=== PATIENT | female | born 1935 | race Caucasian/White ===

== ENCOUNTER 2016-09-30 15:50 | Inpatient (IN) | payer MEDICARE ==
--- NOTE | 2016-09-30 17:01 | CT ---
EXAM DESCRIPTION: Head CLINICAL HISTORY: DIZZINESS AND GIDDINESS COMPARISON: August 31, 2014 TECHNIQUE: Non contrast cranial CT This exam was performed according to our departmental dose-optimization program, which includes automated exposure control, adjustment of the mA and/or kV according to patient size and/or use of iterative reconstruction technique. FINDINGS: Unenhanced CT evaluation of the head without MPR reformatted images demonstrates stable moderate ventriculomegaly and prominence of the sylvian fissures and cortical sulci consistent with significant atrophy. No subarachnoid or parenchymal hemorrhage is seen. Small calcifications in the basal ganglia represent benign age-related changes. There is no midline shift or mass effect. The third and fourth ventricles are midline. No subarachnoid or parenchymal or subdural hemorrhage or hematoma is noted. Bone window images demonstrate the bony calvarium is intact. The petrous ridges and upper paranasal sinuses are clear. The right globe is unremarkable but surface calcification and irregularity of the left globe suggest previous trauma and/or surgery. This however is unchanged from 2015 examination. IMPRESSION: 1. Ventriculomegaly with age-related atrophic changes with no acute intracranial process. 2. Abnormal left globe consistent with old surgery and/or trauma with calcification of the wall of the globe, unchanged from 2015. Electronically signed by: Dex Olsen MD 09/30/2016 5:00 PM CDT
--- NOTE | 2016-09-30 17:35 | ED.PDOC ---
History of Present Illness - General Chief Complaint: General Stated Complaint: abnormal lab results Time Seen by Provider: 09/30/16 17:28 Source: patient - History of Present Illness Initial Comments: Cyndi Mallory 81 y/o female stated taht she was sent from her mds office due to elevated CK.Denies body aches ,ststed just felt cold this am had some chills but doing better. Timing/Duration: 4-6 hours Severity: moderate Improving Factors: nothing Worsening Factors: nothing Associated Symptoms: denies symptoms Allergies/Adverse Reactions: Allergies NO KNOWN ALLERGY Allergy (Verified 09/30/16 17:14) Home Medications: Ambulatory Orders Allopurinol [Zyloprim] 150 mg PO DAILY 08/31/14 Atorvastatin Calcium [Lipitor] 80 mg PO DAILY 08/31/14 Clopidogrel Bisulfate [Plavix] 75 mg PO QD 08/31/14 Levetiracetam [Keppra] 500 mg PO BID 08/31/14 Tramadol HCl [Ultram] 50 mg PO PRN PRN 08/31/14 Donepezil Hydrochloride [Donepezil HCl] 10 mg PO DAILY 09/30/16 Estrogens, Conjugated [Premarin] 0.625 mg PO DAILY 09/30/16 Lisinopril 40 mg PO DAILY 09/30/16 Metoprolol Tartrate 25 mg PO DAILY 09/30/16 Review of Systems - Review of Systems Constitutional: States: no symptoms reported EENTM: States: no symptoms reported Respiratory: States: no symptoms reported Cardiology: States: no symptoms reported Gastrointestinal/Abdominal: States: no symptoms reported Genitourinary: States: no symptoms reported Musculoskeletal: States: no symptoms reported Skin: States: no symptoms reported Neurological: States: no symptoms reported Past Medical History (General) - Patient Medical History Hx Seizures: Yes Hx Stroke: Yes Hx Dementia: Yes Hx Asthma: No Hx of COPD: Yes Hx Cardiac Disorders: Yes Hx Congestive Heart Failure: No Hx Hypertension: Yes Hx Thyroid Disease: Yes Hx Diabetes: No Hx Cancer: No Hx Hepatitis C: No Surgical History: appendectomy, tonsillectomy, other - hysterectomy - Vaccination History Hx Tetanus, Diphtheria Vaccination: Yes Hx Influenza Vaccination: Yes Hx Pneumococcal Vaccination: Yes - Social History Hx Tobacco Use: Yes Hx Chewing Tobacco Use: No Hx Alcohol Use: No Hx Substance Use: No Hx Substance Use Treatment: No Hx Depression: No Hx Physical Abuse: No Hx Emotional Abuse: No Hx Suspected Abuse: No - Activities of Daily Living Patient Lives Alone: No - family Hospice Agency (if applicable):: None - Female History Patient is a Female of Child Bearing Age (10 -59 yrs old): No Patient : No Family Medical History - Family History Mother Family History: No Known Living Status: Unknown Hx Cardiac Disease: Yes - parents Physical Exam - Physical Exam General Appearance: Alert, Comfortable, No apparent distress Eye Exam: bilateral normal Ears, Nose, Throat: hearing grossly normal, normal ENT inspection, normal pharynx Neck: non-tender, full range of motion, supple Respiratory: chest non-tender, lungs clear, normal breath sounds Cardiovascular/Chest: normal peripheral pulses, regular rate, rhythm, no murmur Peripheral Pulses: radial,right: 1+, radial,left: 1+ Gastrointestinal/Abdominal: normal bowel sounds, non tender, soft Back Exam: normal inspection, no CVA tenderness Extremity: non-tender, no pedal edema, no calf tenderness Neurologic: no motor/sensory deficits, alert, normal mood/affect, oriented x 3 Departure - Departure Clinical Impression: Non-traumatic rhabdomyolysis Renal failure (ARF), acute on chronic Qualifiers: Acute renal failure type: unspecified Chronic kidney disease stage: unspecified stage Qualified Code(s): N17.9 - Acute kidney failure, unspecified Time of Disposition: 19:15 - D/W Dr. Fabian-Hospitalist Disposition: Admit Patient Condition: Fair Departure Forms: Patient Portal Self Enrollment Referrals: Akira Beasley MD [Primary Care Provider] - 1-2 Weeks Home Medications: Ambulatory Orders Allopurinol [Zyloprim] 150 mg PO DAILY 08/31/14 Atorvastatin Calcium [Lipitor] 80 mg PO DAILY 08/31/14 Clopidogrel Bisulfate [Plavix] 75 mg PO QD 08/31/14 Levetiracetam [Keppra] 500 mg PO BID 08/31/14 Tramadol HCl [Ultram] 50 mg PO PRN PRN 08/31/14 Donepezil Hydrochloride [Donepezil HCl] 10 mg PO DAILY 09/30/16 Estrogens, Conjugated [Premarin] 0.625 mg PO DAILY 09/30/16 Lisinopril 40 mg PO DAILY 09/30/16 Metoprolol Tartrate 25 mg PO DAILY 09/30/16 Decision To Admit - Decistion To Admit Decision to Admit Reason: Admit from ER Decision to Admit Date: 09/30/16 Decision to Admit Time: 19:16
[2016-09-30] MEDS ORDERED: HYDROcodone 5MG/APAP 325MG 1 EA TAB PO PRN (20:13)
[2016-09-30] MEDS ORDERED: MAGNESIUM HYDROXIDE 30 ML UD PO PRN (20:13)
[2016-09-30] MEDS ORDERED: SODIUM CHLORIDE 0.9% (FLUSH) 10 ML SYG IV PRN (20:13)
[2016-09-30] MEDS ORDERED: ONDANSETRON INJ 4 MG/2 ML VIAL IV PRN (20:13)
--- NOTE | 2016-09-30 20:16 | HP ---
HISTORY OF PRESENT ILLNESS: This 81 year-old white female is admitted to the hospital from the Emergency Room after being sent from Dr. Beasley's office for specific evaluation and treatment because of an elevated CPK noted in his office. She has had significant shaking chills since yesterday afternoon but no fever. She has been nauseated but no emesis. She has had decreased urine output recently. She has not been lying on any hard surfaces. She has had no chest pain but she has been feeling especially tired recently. Mild shortness of breath upon exertion. The patient is admitted to the hospital because in the Emergency Room she was found to have CPK elevation going higher as well as evidence of a hyperchloremic metabolic acidosis possibly associated with an acute kidney injury with renal failure possibly related to the Rhabdomyolysis. Special attention to rule out a urinary tract infection is in progress. Special fluid administration to assist with the metabolic acidosis without aggravating the hyperchloremic state and to help eliminate some of the significant muscle pigment circulating. PAST MEDICAL HISTORY: 1. Cerebrovascular accident on 2 occasions mild in nature. PAST SURGICAL HISTORY: 1. Hysterectomy with oophorectomy in her 20s when she has taken fairly high doses of Premarin since. 2. Appendix removal. FAMILY HISTORY: Positive for coronary artery disease, diabetes mellitus, cancer and some cerebrovascular accidents. 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 Tobacco use was stopped over 22 years ago. REVIEW OF SYSTEMS: Weight is stable. She has had no fever, but she has had some shaking chills since yesterday afternoon. HEENT: Slight decrease in her hearing noted recently. LUNGS: Generally clear with no significant cough or hemoptysis. CARDIOVASCULAR: No chest pain or palpitations noted. GASTROINTESTINAL: Appetite is fair with nausea but no emesis. No blood in the stools. GENITOURINARY: No dysuria but decreased urine output with decreased fluid intake noted today. NEUROLOGIC: The patient is feeling a little weaker recently. No significant headaches or focal weakness. PHYSICAL EXAMINATION: VITAL SIGNS: Afebrile, pulse 60, blood pressure 188/73, respirations 16, pulse oximetry 98% on room air. Weight is 68 kilos. GENERAL: The patient is awake and alert. She is accompanied by other family members who assist with the ongoing history. The patient is able to communicate quite well and has a fairly good grasp of her past history. HEENT: Unremarkable. NECK: Supple. CHEST: Lungs are generally clear to auscultation. CARDIOVASCULAR: Heart tones somewhat distant though regular. Blood pressure is slightly elevated. ABDOMEN: Has fairly good bowel tones. No organomegaly, masses or tenderness at this time. EXTREMITIES: No significant edema state. Moving all extremities. No significant muscle soreness or tightness. NEUROLOGIC: No focal neurological deficits. The patient is awake, alert and oriented, and communicative. LABORATORY: White count is 7,900, hemoglobin 11.9 with normocytic normochromic presentation. Platelets normal. INR of 0.87. Chemistries are significant in that the CO2 is low at 14 suggesting an acidosis while chloride is elevated at 114, potassium normal at 4.1, BUN markedly elevated at 58 almost double what it normally is and creatinine 4.15 where it normally runs approximately half of that in the low 2s. Glucose is 108, osmolality is normal at 294. Lactic acid is pending. Calcium 8.2, magnesium 1.6. AST 43, creatinine kinase is elevated at 797 with 11.8 being the CK-MB with normal troponin of 0.02. Albumin normal at 3.4, TSH normal 3.53. Urinalysis is pending. Blood cultures are pending. Abdominal/pelvic CT does reveal evidence of a nonobstructing stone in the left lower pole of the kidney and a small hiatal hernia. Head CT was performed and shows no acute findings with slight enlargement of the ventricles evident with age-related atrophic changes and an old possible injury or surgery to the left eye. ASSESSMENT: 1. Acute renal injury with early renal failure possibly aggravated by circulating muscle pigments requiring specialized buffered crystalloid to support and close followup necessary to prevent worsening. 2. Rhabdomyolysis with elevated CPK possibly related to the ongoing use of fairly fairly large doses of statins for elevated cholesterol levels in the past. Statins now stopped. 3. History of an acute metabolic acidosis with hyperchloremic state possibly related to the underlying renal failure and acute renal injury with close followup necessary. 4. Shaking chills possibly related to a urinary tract infection still awaiting urinalysis. 5. Longstanding Premarin use fairly high dose which may be increasing her risk for thromboembolic disease process. PLAN: The patient is admitted to the hospital for buffered crystalloid administration in an effort to try to minimize the fairly significant renal injury noted. Close observation of CPK and metabolic acidosis is necessary. The patient may require antibiotic use and cultures are pending. Continue with DVT prophylaxis but adjust dosings of medications because of the renal injury. Special attention to adequate fluids to help flush muscle pigments out of her bloodstream. Close followup also with Nephrology Service depending upon how rapidly she responds to the conservative treatment initiated. #[id number] MTDD
[2016-09-30] MEDS ORDERED: IV SET AND CAP CHANGE INJ INJ SCH (20:30)
[2016-09-30] MEDS ORDERED: ENOXAPARIN SODIUM 40 MG/0.4 ML SYG SUBCU SCH (20:30)
--- NOTE | 2016-09-30 20:34 | CT ---
PROCEDURE: Abdoment/Pelvis w/o Contrast HISTORY: renal failure Indication: Same as above Comparison: 09/26/2015 Technique: CT of the abdomen and pelvis was done without intravenous contrast. Images were obtained from the lung base to the level of the pubic symphysis in axial plane, followed by orthogonal sagittal and coronal reconstruction. Oral contrast was not given for the study. This exam was performed according to our departmental dose-optimization program, which includes automated exposure control, adjustment of the mA and/or KV according to the patient's size and/or use of iterative reconstruction technique. FINDINGS: Images through the lung bases do not show any focal infiltrates or pleural effusions. There is presence of a small hiatal hernia. There is a 3 mm nonobstructive calculus in the lower pole of the left kidney. There is no hydroureteronephrosis on either side The liver, gallbladder, pancreas, spleen and the bilateral adrenal glands appear unremarkable, given the limitation of lack of intravenous contrast. The urinary bladder is unremarkable, without any evidence of wall thickening, calculi or filling defects. The small bowel appears unremarkable, without any evidence of small bowel obstruction or bowel wall thickening. There is no CT evidence of acute appendicitis, pericecal inflammatory change or ileocecal mesenteric adenitis. The ileocecal junction appears unremarkable. There is no CT evidence of acute colonic diverticulitis or colitis or large bowel obstruction. There is no pathological lymphadenopathy in the retroperitoneum or in the pelvic region. There is no evidence of free fluid or free air in the abdomen or the pelvic region. There is no clinically significant abdominal aortic aneurysm. Atherosclerotic vascular calcifications involving the takeoff of the major vessels from the abdominal aorta as well as the abdominal aorta are noted. There is no clinically significant inguinal or ventral hernia. The visualized lumbar spine shows multilevel degenerative change. The paravertebral soft tissues are unremarkable. The remainder of the pelvic structures are unremarkable. IMPRESSION: There is presence of a small hiatal hernia. There is a 3 mm nonobstructive calculus in the lower pole of the left kidney. There is no hydroureteronephrosis on either side Electronically signed by: Kalyan Cote MD 09/30/2016 8:32 PM CDT Workstation: [id number]
[2016-09-30] MEDS ORDERED: DEXTROSE 5% 1000ML 1,000 ML IVS ONE (20:58)
[2016-09-30] MEDS ORDERED: levETIRAcetam 250 MG TAB ONE (20:58)
[2016-09-30] MEDS ORDERED: SODIUM BICARBONATE SYRINGE 50 MEQ/50 ML SYG IV ONE (20:58)
[2016-09-30] MEDS ORDERED: NON-FORMULARY MEDICATION 1 EA MIS (Levetiracetam [Keppra] 500 MG) PO SCH (21:00)
[2016-09-30] MEDS: SODIUM BICARBONATE SYRINGE 75 MEQ in DEXTROSE 5% 1000ML 1,000 ML IV PRN (21:00)
[2016-09-30] MEDS ORDERED: METOPROLOL TARTRATE 25 MG TAB PO SCH (21:00)
[2016-09-30] MEDS: LEVALBUTEROL NEBS 0.63 MG/3 ML VIAL INH SCH (23:54)
[2016-10-01] MEDS: OMEPRAZOLE CAP 20 MG CAP PO SCH (06:24)
--- NOTE | 2016-10-01 07:06 | RAD ---
EXAM: Single view chest. INDICATION: Chills. COMPARISON: Chest x-ray: 03/09/2015. FINDINGS: Cardiac silhouette: Enlarged Marifer: Unremarkable. Lobar consolidation: None. Pleural effusion: None. Pneumothorax: None. Other: None. Bones: Unremarkable. Other: None. IMPRESSION: 1. No acute cardiopulmonary process. Electronically signed by: Nomi Patel MD 10/01/2016 7:05 AM CDT Workstation: [id number]
[2016-10-01] MEDS ORDERED: CEPHALEXIN MONOHYDRATE 500 MG CAP ONE (07:19)
[2016-10-01] MEDS ORDERED: ENOXAPARIN SODIUM 60 MG/0.6 ML SYG SUBCU SCH ×2 (08:00→20:30)
[2016-10-01] MEDS: LEVALBUTEROL NEBS 0.63 MG/3 ML VIAL INH SCH ×2 (08:45→16:30)
[2016-10-01] MEDS ORDERED: SODIUM BICARBONATE SYRINGE 50 MEQ/50 ML SYG IV ONE ×2 (08:55→19:52)
[2016-10-01] MEDS ORDERED: DEXTROSE 5% 1000ML 1,000 ML IVS ONE ×2 (08:55→19:52)
[2016-10-01] MEDS ORDERED: MAGNESIUM SULFATE PREMIX 2GM 50 ML IVPB ONE (09:26)
[2016-10-01] MEDS: LISINOPRIL 10 MG TAB PO SCH (09:32)
[2016-10-01] MEDS: levETIRAcetam 250 MG TAB PO SCH ×2 (09:32→20:32)
[2016-10-01] MEDS: METOPROLOL TARTRATE 25 MG TAB PO SCH ×2 (09:33→17:29)
[2016-10-01] MEDS: SODIUM BICARBONATE SYRINGE 75 MEQ in DEXTROSE 5% 1000ML 1,000 ML IV PRN ×2 (09:33→20:26)
[2016-10-01] MEDS: MAGNESIUM SULFATE PREMIX 2GM 2 GM in PREMIX BAG 1 BAG IVPB ONE ×2 (09:33→09:37)
--- NOTE | 2016-10-01 17:24 | PN ---
DATE: 10/01/16 SUPERVISING PHYSICIAN: Dex Abel M.D. SUBJECTIVE: The patient notes that she is feeling a little better. She has had no nausea today. She denies any chest pains. She is tolerating oral intake well. She remains afebrile. OBJECTIVE: VITAL SIGNS: T max 98.5, pulse 59, blood pressure 179/74, respirations 12, satting 97% on room air. I's and O's show a negative balance of 380 with 370 in, 750 out. Weight is 70.2 kg. CHEST: Lungs are clear to auscultation bilaterally. HEART: Regular rate and rhythm. ABDOMEN: Soft, non- tender. Positive bowel sounds. EXTREMITIES: No clubbing, cyanosis or edema. NEUROLOGIC: She is alert and oriented times three. LABORATORY: Potassium today is 3.4 which is down from admission of 4.1, chloride remains elevated at 114, carbon dioxide is still low at 16, BUN has improved somewhat to 55, creatinine as well has gone down to 3.89 compared to 4.15. Serum osmolality continues to show elevation. Calcium 7.9 corrected for a low albumin, calcium is 9.1. CPK is now down to 637 compared to previous 12 hours, it was at 797. Troponin remains within normal limits at 0.03. Liver panel this morning showed triglycerides at 193 with LDL and HDL within normal limits as well as cholesterol. MICROBIOLOGY: Blood cultures remain negative at 24 hours. RADIOLOGY: Chest x-ray shows no acute cardiopulmonary process per radiology interpretation. ASSESSMENT: 1. Acute renal injury with early renal failure aggravated by Rhabdomyolysis requiring specialized buffered crystalloid with bicarbonate to support and improve renal function continuing to show improvement. 2. Rhabdomyolysis with elevated CPK possibly related to the ongoing use of fairly large doses of statins for elevated cholesterol levels in the past with statins now being stopped. 3. History of an acute metabolic acidosis with hyperchloremic state possibly related to ongoing renal failure with acute renal injury showing improvement requiring ongoing treatment with sodium bicarbonate drip. 4. History of Premarin use for many years, high doses increasing the patient' s risk for thromboembolic disease process. PLAN: The patient will continue with current plan of treatment with IV fluids to include sodium bicarbonate for an additional 24 hours. Will continue to monitor CPK. At this point, there is no indication for antibiotics as the patient has had no cultures completed. She has no longer had any chills or any other urinary symptoms. Will continue DVT prophylaxis and adjust according to renal function as necessary. Will touch base tomorrow with Dr. Wagner after repeat of laboratory studies as she will need close followup in the outpatient setting once stable enough to be discharge. Until then, will continue to follow and treat appropriately. #[id number] MTDD
[2016-10-01] MEDS ORDERED: ENOXAPARIN SODIUM 40 MG/0.4 ML SYG SUBCU ONE (20:06)
--- NOTE | 2016-10-01 23:33 | PCM.CORE ---
Physician DVT/VTE - Nurse DVT Assessment & Total Each Risk Factor Represents 3 Points: Age over 75 years Each Risk Factor Represents 1 Point: Medical PT at Bed Rest DVT Assessment Score: 4 - 5 or more Very High Risk Treatments: Early Ambulation *, Sequential Compression Device Pharmacological: Enoxaparin 40mg SQ Daily
[2016-10-01] MEDS ORDERED: CLOPIDOGREL 75 MG TAB PO SCH (23:45)
[2016-10-02] MEDS: LEVALBUTEROL NEBS 0.63 MG/3 ML VIAL INH SCH (00:50)
[2016-10-02] MEDS: OMEPRAZOLE CAP 20 MG CAP PO SCH (05:55)
[2016-10-02] MEDS: LEVALBUTEROL NEBS 0.63 MG/3 ML VIAL NEB SCH ×2 (07:54→14:40)
[2016-10-02] MEDS ORDERED: POTASSIUM CHLORIDE 20 MEQ TAB PO ONE (08:45)
[2016-10-02] MEDS: KCL 20MEQ/0.45% NS 1,000 ML IVS PRN ×2 (08:58→15:08)
[2016-10-02] MEDS ORDERED: PREMARIN 0.625 MG PO SCH (09:00)
[2016-10-02] MEDS ORDERED: CLOPIDOGREL 75 MG TAB PO SCH (09:00)
[2016-10-02] MEDS ORDERED: METOPROLOL TARTRATE 25 MG TAB PO SCH (09:00)
[2016-10-02] MEDS ORDERED: DONEPEZIL HCL 5 MG TAB PO SCH (09:00)
[2016-10-02] MEDS: METOPROLOL TARTRATE 25 MG TAB PO SCH ×2 (09:01→17:47)
[2016-10-02] MEDS: LISINOPRIL 10 MG TAB PO SCH (09:07)
[2016-10-02] MEDS: levETIRAcetam 250 MG TAB PO SCH (09:08)
[2016-10-02 18:45] VITALS: BP 148/68; TEMP 98.1; O2SAT 94
--- NOTE | 2016-10-02 21:27 | DS ---
SUPERVISING PHYSICIAN: Dex Abel M.D. DISCHARGE DIAGNOSIS: 1. Acute renal injury with early renal failure exacerbated by Rhabdomyolysis, moderate, requiring aggressive fluid resuscitation with sodium bicarbonate drip with renal rehabilitation showing improvement at discharge. 2. Rhabdomyolysis with continued elevated CPK although returning to normal felt to be secondary to large doses of statins for elevated cholesterol levels in the past with statins having been stopped at admission and at discharge. 3. History of an acute metabolic acidosis with hyperchloremic state related to ongoing renal failure with acute renal injury, improved and resolved after treatment with sodium bicarbonate drip. 4. History of Premarin use for many years, high doses with the patient having increased risk for thromboembolic disease process. HISTORY OF PRESENT ILLNESS: Ms. Mallory is an 81 year-old female patient who was admitted to the hospital from the Emergency Room after being seen by Dr. Besaley's office for specific evaluation and treatment because of an elevated CPK noted in his office. She has had some episodes of significant shaking chills prior to admission, but no fevers. The patient reports that sometimes that is what she has before she had any seizures, but she denied any seizure activity. She had been nauseated but had no emesis. She had also noted to have decreased urine output recently, but denied any acute traumas or any length of period of immobility. She had no chest pains but had been feeling especially tired. She reported some mild shortness of breath upon exertion. The patient was admitted from the Emergency Room after it was found that her CPK was elevated and was going higher as well as evidence of a hyperchloremic metabolic acidosis felt to be related to acute kidney injury with renal failure possibly related to the Rhabdomyolysis. She was admitted to the Medical/Surgical floor for administration of fluids to assist in correction of metabolic acidosis as noted in the laboratory to correct the hyperchloremic state and to help eliminate some of the significant muscle pigment circulating resulting in the acute renal failure from Rhabdomyolysis. LABORATORY: CBC on admission showed a normal white count as well as at discharge it was 6.4, hemoglobin and hematocrit were stable and at discharge was 10 and 30. Differential was within normal limits. Platelet count was within normal limits at 169,000 at discharge. Coagulation studies showed normal PT at 9.8. Chemistries on admission showed normal sodium and potassium with potassium 4.1, chloride was elevated at 114, carbon dioxide was 14. Initial BUN 58, creatinine 4.15. Review of previous records indicated that her baseline creatinine was around 2.6 to 2.9. Lactic acid on admission was 0.7, serum osmolality 294, calcium 8.2, phosphorus 4.3, magnesium 1.6 which did correct after replacement IV to 1.8. Liver functions initially showed just an elevated AST at 43. CPK initially was 738 with troponin 0.02. Two hours post admission to the E. R. showed the CPK was elevated and was up to 797 with troponin remaining within normal limits. TSH was 3.53. After initiation of bicarb drip and fluids, she did show good response. She did drop her potassium initially to 3.1 at its lowest but was replaced and at discharge had normalized at 3.8. BUN showed daily improvement, at discharge was 46. Her creatinine showed daily improvement as well and was down to 3.42 by time of discharge. CPK responded well to fluids and was down to 513 at discharge. Liver functions had normalized. Her lipid panel showed triglycerides of 193 with cholesterol 153 with LDL 61 and HDL 55. Urinalysis on admission showed 100 protein with a moderate amount of blood, otherwise all others were within normal limits. MICROBIOLOGY: She had 2 sets of blood cultures that were negative after 24 hours. RADIOLOGY: She had a CT of the head in the Emergency Department due to dizziness and giddiness, and the impression per radiology was noted ventriculomegaly with age-related atrophy changes with no acute intracranial process. There was abnormal left globe consistent with old surgery and old trauma, and calcification of the wall of the globe unchanged since 2015. She also had a chest x-ray after admission to the Medical/Surgical floor and a single view chest per radiology interpretation showed no acute cardiopulmonary processes. HOSPITAL COURSE: Ms. Mallory was admitted from the Emergency Department as noted due to Rhabdomyolysis and concerns for developing renal failure. She was started on IV fluids. She was given an initial loading dose of 100 mEq of sodium bicarbonate and this was continued with a 75 mEq bicarb drip at 105 mL per hour. The bicarbonate drip was discontinued on the morning of discharge and she was transition to half normal saline with 20 of potassium to help replace her potassium levels. She did show good clinical response and was clinically improving. It was felt that her kidneys were responding to treatment as well as CPK was responding well to fluids, and that she was able to be discharged as she was showing to be clinically improving and stable. During hospitalization, her Lipitor was stopped as well as Lisinopril was held. Her blood pressures remained stable. On discharge, her blood pressure was 153 /70, satting 97%, temperature 97.8, pulse 61. PLAN: Ms. Mallory was discharged on the afternoon of 10/02/16 to have close clinical followup with both Dr. Beasley and Dr. Wagner. She is scheduled to see Dr. Wagner on 10/08/16 at 10:30 AM. She is to have lab drawn at Dr. Beasley's office on the Thursday after discharge on 10/06/16 and to take those results to Dr. Wagner in [place] on Thursday of 10/08/16 at 10:30 AM. She is to see Dr. Beasley on , 10/09/16 at 10:15. She was told to avoid extreme heat and do no strenuous exercises or activities until she was seen in followup by both Dr. Beasley and Dr. Wagner. She was encouraged to take fluids to prevent dehydration and to assist with continuation of improving kidney function. She is to resume her home medications as instructed with a note that she was to hold her Lipitor and Lisinopril until she could be seen in followup. She was told to return to the hospital or call 911 if she had any concerning symptoms. At discharge, prescriptions provided included: 1. Metoprolol that was changed to 25 mg twice daily. 2. Lipitor was held. Lisinopril was held. All other medications as prior to admission were unchanged. Diet at discharge was diabetic diet as tolerated. Activity is no strenuous exercises and to avoid heat. Condition at discharge was stable and improved. #[id number] [facility]
[2016-10-03] MEDS ORDERED: PANTOPRAZOLE SODIUM TAB 40 MG PO SCH (06:30)
== END 2016-10-02 18:20 | disposition home or self-care (01) | DRG 683 ==
LOC: GMA 15:50 → ER 15:50 → EDSTATUS 16:56 → MS 20:15 → OBSVTOIN 20:15
PROVIDERS: ADMIT Emergency Medicine; ATTEND Nurse Practitioner Family
DX: N17.9 Acute kidney failure, unspecified (principal); M62.82 Rhabdomyolysis; E87.2 Acidosis; N18.3 Chronic kidney disease, stage 3 (moderate); E78.00 Pure hypercholesterolemia, unspecified; T46.6X5A Adverse effect of antihyperlipidemic and antiarteriosclerotic drugs, initial encounter; J44.9 Chronic obstructive pulmonary disease, unspecified; R42 Dizziness and giddiness; Z86.73 Personal history of transient ischemic attack (TIA), and cerebral infarction without residual deficits; Z79.890 Hormone replacement therapy; Z90.710 Acquired absence of both cervix and uterus; Z87.891 Personal history of nicotine dependence; Z79.899 Other long term (current) drug therapy; Y92.009 Unspecified place in unspecified non-institutional (private) residence as the place of occurrence of the external cause

== ENCOUNTER → 2016-10-09 | Outpatient (CLI) | payer MEDICARE | END | disposition home or self-care (01) | LOC: GMAB 11:41 | PROVIDERS: ATTEND Family Medicine | DX: D50.9 Iron deficiency anemia, unspecified (principal); E53.8 Deficiency of other specified B group vitamins; E21.5 Disorder of parathyroid gland, unspecified ==

== ENCOUNTER → 2016-12-02 | Outpatient (CLI) | payer MEDICARE | END | disposition home or self-care (01) | LOC: GMAB 11:03 | PROVIDERS: ATTEND Family Medicine | DX: D50.9 Iron deficiency anemia, unspecified (principal); E53.8 Deficiency of other specified B group vitamins; N18.4 Chronic kidney disease, stage 4 (severe); E21.1 Secondary hyperparathyroidism, not elsewhere classified; M10.9 Gout, unspecified ==

== ENCOUNTER 2016-12-06 19:38 | Emergency (ER) | payer MEDICARE ==
--- NOTE | 2016-12-06 20:09 | ED.PDOC ---
History of Present Illness - General Chief Complaint: Blood Pressure Problem Stated Complaint: Hypertension, dizziness, headache Time Seen by Provider: 12/06/16 20:02 Source: patient, RN notes reviewed, Vital Signs reviewed, family - and friend Exam Limitations: no limitations - History of Present Illness Initial Comments: Patient started with a mild occipital BANEGAS around noon today. It has persisted. Checked her BP at home and was 220/98. Decided to come to the ER and when they got her up to come she got dizzy. No numbness, tingling or weakness. No CP or SOB. Timing/Duration: constant - for past 8 hours Severity: moderate Improving Factors: nothing Worsening Factors: movement Associated Symptoms: headaches Allergies/Adverse Reactions: Allergies NO KNOWN ALLERGY Allergy (Verified 09/30/16 17:14) Home Medications: Ambulatory Orders Clopidogrel Bisulfate [Plavix] 75 mg PO QD 08/31/14 Levetiracetam [Keppra] 500 mg PO BID 08/31/14 Tramadol HCl [Ultram] 50 mg PO PRN PRN 08/31/14 Estrogens, Conjugated [Premarin] 0.625 mg PO DAILY 09/30/16 Metoprolol Tartrate [Lopressor] 25 mg PO BIDFD 10/02/16 Amlodipine Besylate 5 mg PO DAILY 12/06/16 Clonidine HCl 0.2 mg PO BID PRN #30 tab 12/06/16 Metoprolol Tartrate [Lopressor] 25 mg PO BID 12/06/16 Review of Systems - Review of Systems Constitutional: States: no symptoms reported Respiratory: States: no symptoms reported Cardiology: States: see HPI. Denies: chest pain, palpitations Gastrointestinal/Abdominal: States: no symptoms reported Skin: States: no symptoms reported Neurological: States: see HPI, headache, other - dizzy. Denies: numbness, paresthesia, tingling, weakness All other Systems: No Change from Baseline Past Medical History (General) - Patient Medical History Hx Seizures: Yes Hx Stroke: Yes Hx Dementia: Yes Hx Asthma: No Hx of COPD: No Hx Cardiac Disorders: Yes Hx Congestive Heart Failure: No Hx Pacemaker: No Hx Hypertension: Yes Hx Thyroid Disease: Yes Hx Diabetes: No Hx Renal Disease: Yes - renal failure Hx Cancer: No Hx Hepatitis C: No Hx MRSA: No Surgical History: appendectomy, tonsillectomy, Hysterectomy - Vaccination History Hx Tetanus, Diphtheria Vaccination: No Hx Influenza Vaccination: No Hx Pneumococcal Vaccination: No Immunizations Up to Date: Yes - Social History Hx Tobacco Use: No Hx Chewing Tobacco Use: No Hx Alcohol Use: No Hx Substance Use: No Hx Substance Use Treatment: No Hx Depression: No Hx Physical Abuse: No Hx Emotional Abuse: No Hx Suspected Abuse: No - Female History Patient is a Female of Child Bearing Age (10 -59 yrs old): No Patient : No Family Medical History - Family History Mother Family History: No Known Living Status: Unknown Hx Cardiac Disease: Yes - parents Physical Exam - Physical Exam General Appearance: Alert, Comfortable, No apparent distress, Well Developed, Well Groomed, Well Hydrated, Well Nourished Eye Exam: bilateral normal Neck: supple, normal inspection Respiratory: lungs clear, normal breath sounds, no respiratory distress, no accessory muscle use Cardiovascular/Chest: regular rate, rhythm, no gallop, systolic murmur Gastrointestinal/Abdominal: normal bowel sounds, non tender, soft, no organomegaly Extremity: normal range of motion, non-tender Neurologic: no motor/sensory deficits, alert, normal mood/affect, oriented x 3 Skin Exam: normal color, warm/dry Comments: Vital Signs 12/06/16 19:51 Temperature 98.8 F Pulse Rate [ 64 Left Radial] Respiratory 18 Rate Blood Pressure 198/90 [Left Arm] O2 Sat by Pulse 98 Oximetry Progress - Progress Progress: 12/06/16 20:21 Old records show issues with elevated BP in past and family reports she use to have Clonidine in the past but could not find it today. Will start with Clonidine 0.2mg PO 12/06/16 21:28 Patient is feeling better. BP 137/55. Patient would like to go home. Will d/c home with Rx for Clonidine. Departure - Departure Clinical Impression: HTN (hypertension) Qualifiers: Hypertension type: essential hypertension Qualified Code(s): I10 - Essential ( primary) hypertension Time of Disposition: 21:29 Disposition: Discharge to Home or Self Care Condition: Good Departure Forms: ED Discharge - Pt. Copy, Patient Portal Self Enrollment Instructions: DI for High Blood Pressure Diet: resume usual diet Activity: increase activity as tolerated Referrals: Akira Beasley MD [Primary Care Provider] - 1-2 Weeks Prescriptions: Clonidine HCl 0.2 mg PO BID PRN #30 tab PRN Reason: Hypertension Home Medications: Ambulatory Orders Clopidogrel Bisulfate [Plavix] 75 mg PO QD 08/31/14 Levetiracetam [Keppra] 500 mg PO BID 08/31/14 Tramadol HCl [Ultram] 50 mg PO PRN PRN 08/31/14 Estrogens, Conjugated [Premarin] 0.625 mg PO DAILY 09/30/16 Metoprolol Tartrate [Lopressor] 25 mg PO BIDFD 10/02/16 Amlodipine Besylate 5 mg PO DAILY 12/06/16 Clonidine HCl 0.2 mg PO BID PRN #30 tab 12/06/16 Metoprolol Tartrate [Lopressor] 25 mg PO BID 12/06/16
[2016-12-06] MEDS ORDERED: cloNIDine HCL 0.1 MG TAB PO ONE (20:11)
[2016-12-06 21:42] VITALS: BP 144/62; TEMP 97.6; O2SAT 98
== END 2016-12-06 21:42 | disposition home or self-care (01) ==
LOC: ER 19:38
DX: I10 Essential (primary) hypertension (principal); E03.9 Hypothyroidism, unspecified; F03.90 Unspecified dementia, unspecified severity, without behavioral disturbance, psychotic disturbance, mood disturbance, and anxiety; Z86.73 Personal history of transient ischemic attack (TIA), and cerebral infarction without residual deficits; Z79.02 Long term (current) use of antithrombotics/antiplatelets; Z79.899 Other long term (current) drug therapy

== ENCOUNTER → 2016-12-25 | Outpatient (CLI) | payer MEDICARE ==
--- NOTE | 2016-12-25 16:45 | MRI ---
EXAM DESCRIPTION: Brain w/oContrast CLINICAL HISTORY: 81 years, Female, DIZZINESS AND GIDDINESS COMPARISON: September 30 CT scan FINDINGS: Standard triplanar sequences. Diffusion weighted sequence does not show acute infarct. Gradient sequence shows some physiologic basal ganglia calcification but no findings suspicious for hemorrhage. Enlarged ventricles and sulci. Moderate microischemic changes periventricular white matter, probably slightly more than typically seen for patient of this age. Mild ethmoid sinus mucosal thickening.. IMPRESSION: No acute infarct hemorrhage or mass. Moderate atrophy and microischemic ischemic changes in the periventricular white matter. Electronically signed by: Ricardo Conteh MD 12/25/2016 4:44 PM CDT
== END | disposition home or self-care (01) ==
LOC: MRI 13:17
PROVIDERS: ATTEND Family Medicine
DX: R42 Dizziness and giddiness (principal)

== ENCOUNTER → 2017-01-16 | Outpatient (CLI) | payer MEDICARE | LOC: GMAB 13:04 | PROVIDERS: ATTEND Family Medicine | DX: N18.4 Chronic kidney disease, stage 4 (severe) (principal) ==